=== PATIENT | female | born 1945 | race Caucasian/White ===

== ENCOUNTER 2018-03-27 20:03 | Inpatient (IN) | payer MEDICARE, MEDICAID ==
[~2018-03-27] VITALS: Ht 162.6 cm; Wt 70.0 kg
[~2018-03-27 20:03] MED LIST: ACYC-114 PO; ASPI-515 PO; FLUO20CA19 PO; HYDR2TAB29 PO; LANS30CA60 PO; LEVO50TA5 PO; LIPA1CAP22 PO; METO50TA82 PO; NITR0.3T SL; PROM12.55 PO; RIVA20TA PO; ROSU5TAB PO
[2018-03-27] MEDS ORDERED: SODIUM CHLORIDE 0.9% 1,000 ML IV ONE ×2 (20:33→22:00)
[2018-03-27] MEDS ORDERED: SODIUM CHLORIDE FLUSH 10ML SYR IVF ONE (21:00)
[2018-03-27] MEDS ORDERED: SODIUM CHLORIDE 0.9% 1,000ML IVBOLUS ONE (21:00)
[2018-03-27 21:06] LABS: ACETONE, SERUM Negative (Negative)
[2018-03-27 21:10] LABS: ANION GAP 13 mmol/L (5-15); CALCIUM 8.6 mg/dL (8.5-10.1); CHLORIDE 108 mmol/L (98-107); CREATININE 1.64 mg/dL (0.55-1.02)
[2018-03-27 21:11] LABS: ALBUMIN 3.2 g/dL (3.4-5.0)
[2018-03-27] MEDS ORDERED: FAMOTIDINE 20 MG/2 ML ONE (21:29)
[2018-03-27] MEDS ORDERED: FAMOTIDINE 20 MG/2 ML IVPush ONE (21:30)
[2018-03-27 21:41] LABS: HEMOGLOBIN A1C 11.8 % (4.2-6.3)
[2018-03-27] MEDS ORDERED: SODIUM CHLORIDE FLUSH 10ML SYR IVF PRN (22:00)
[2018-03-27 23:00] VITALS: BP 131/65
[2018-03-27] MEDS ORDERED: ONDANSETRON 2MG/ML, 2ML IVPush PRN (23:00)
[2018-03-27] MEDS ORDERED: POLYETHYLENE GLYCOL 17 GM PACKET PO PRN (23:00)
[2018-03-27] MEDS ORDERED: GLUCAGON 1 MG IM PRN (23:00)
[2018-03-27] MEDS: HEPARIN 5,000 UNITS/ML, 1ML SQ SCH (23:00)
[2018-03-27] MEDS ORDERED: DEXTROSE 50%, 50ML SYRINGE IVPush PRN (23:00)
[2018-03-27] MEDS ORDERED: morphine SULFATE 10 MG/ML, 1ML IVPush PRN (23:00)
[2018-03-27] MEDS ORDERED: BISACODYL 10 MG SUPP PR PRN (23:00)
[2018-03-27] MEDS ORDERED: DEXTROSE 4 GM TAB.CHEW PO PRN (23:00)
[2018-03-27] MEDS: HEPARIN/XARELTO MC SCH (23:30)
[2018-03-27] MEDS: SODIUM CHLORIDE 0.9% 1,000 ML IV SCH (23:51)
[2018-03-27 23:57] LABS: FREE T4 (FREE THYROXINE) 1.43 ng/dL (0.76-1.46); TROPONIN I < 0.015 ng/mL (0.000-0.045)
[2018-03-28] MEDS: HEPARIN/XARELTO MC SCH ×6 (00:30→05:30)
[2018-03-28] MEDS: SODIUM CHLORIDE FLUSH 10ML SYR IVF SCH ×3 (00:31→21:19)
[2018-03-28] MEDS: ATORVASTATIN 10 MG TABLET PO SCH ×2 (00:46→21:20)
[2018-03-28] MEDS: INSULIN LISPRO 100 UNITS/ML, PEN SQ-INSULIN SCH ×5 (01:04→21:23)
[2018-03-28 01:45] VITALS: BP 121/69
[2018-03-28 05:24] LABS: BASOPHILS # (AUTO) 0.02 x10^3/uL (0-0.1); BASOPHILS % (AUTO) 0 % (0-1); EOSINOPHILS # (AUTO) 0.31 x10^3/uL (0-0.4); EOSINOPHILS % (AUTO) 5 % (1-7); LYMPHOCYTES # (AUTO) 2.32 x10^3/uL (1-3.4); LYMPHOCYTES % (AUTO) 38 % (22-44); MD NO; MEAN CORPUSCULAR HEMOGLOBIN 30.9 pg (27.0-34.8); MEAN CORPUSCULAR HGB CONC 34.1 g/dL (32.4-35.8); MEAN CORPUSCULAR VOLUME 90.5 fL (80-100); MEAN PLATELET VOLUME 7.8 fL (7.4-10.4); MONOCYTES # (AUTO) 0.54 x10^3/uL (0.2-0.8); MONOCYTES % (AUTO) 9 % (2-9); NEUTROPHILS # (AUTO) 2.87 x10^3/uL (1.8-6.8); NEUTROPHILS % (AUTO) 47 % (42-75); PLATELET COUNT 229 x10^3/uL (130-400); RED BLOOD COUNT 3.85 x10^6/uL (3.82-5.3); RED CELL DISTRIBUTION WIDTH 12.9 % (9.6-15.2)
[2018-03-28 05:31] LABS: ALBUMIN 2.9 g/dL (3.4-5.0); ANION GAP 9 mmol/L (5-15); CALCIUM 8.2 mg/dL (8.5-10.1); CHLORIDE 113 mmol/L (98-107)
[2018-03-28 05:37] LABS: ALANINE AMINOTRANSFERASE 17 U/L (12-78); ALKALINE PHOSPHATASE 90 U/L (45-117); BILIRUBIN,TOTAL 0.5 mg/dL (0.2-1.0); CREATININE 1.14 mg/dL (0.55-1.02); TOTAL PROTEIN 5.8 g/dL (6.4-8.2); TROPONIN I < 0.015 ng/mL (0.000-0.045)
[2018-03-28] MEDS: SODIUM CHLORIDE 0.9% 1,000 ML IV SCH (06:11)
[2018-03-28] MEDS: PANTOPROZOLE 40MG TABLET PO SCH (08:26)
[2018-03-28] MEDS: HEPARIN 5,000 UNITS/ML, 1ML SQ SCH (08:26)
[2018-03-28] MEDS: LEVOTHYROXINE 75 MCG TABLET PO SCH (08:26)
[2018-03-28] MEDS: PANCRELIPASE 24,000 CAPSULE.DR PO SCH (08:26)
[2018-03-28] MEDS: METOPROLOL TARTRATE 50 MG TABLET PO SCH (08:26)
[2018-03-28] MEDS: SENNA/DOCUSATE TABLET PO SCH (08:27)
[2018-03-28] MEDS ORDERED: RIVAROXABAN 20 MG TABLET PO SCH (09:00)
[2018-03-28] MEDS: NS + 40MEQ KCL 1,000 ML IV SCH ×2 (09:30→21:38)
[2018-03-28] MEDS ORDERED: POTASSIUM CHLORIDE 20 MEQ TAB.ER.PRT PO ONE (10:30)
[2018-03-28 12:14] VITALS: BP 132/79
[2018-03-28 12:15] LABS: CULTURE INDICATED? YES; MICROSCOPIC INDICATED
[2018-03-28 12:31] LABS: CLOSTRIDIUM DIFFICILE ANTIGEN NEGATIVE; CLOSTRIDIUM DIFFICILE TOXIN NEGATIVE (Negative)
[2018-03-28 14:10] VITALS: BP 120/68
[2018-03-28] MEDS: INSULIN GLARGINE 100 UNITS/ML, PEN SQ-INSULIN SCH (14:55)
[2018-03-28] MEDS: RIVAROXABAN 20 MG TABLET PO SCH (17:04)
[2018-03-28 19:32] VITALS: BP 145/74
[2018-03-28] MEDS: ZOLPIDEM 10MG TABLET PO PRN (21:38)
[2018-03-29 01:30] VITALS: BP 126/71
[2018-03-29 07:14] VITALS: BP 134/72
[2018-03-29] MEDS: SENNA/DOCUSATE TABLET PO SCH (09:00)
[2018-03-29] MEDS: NS + 40MEQ KCL 1,000 ML IV SCH ×2 (09:20→21:00)
[2018-03-29] MEDS: INSULIN GLARGINE 100 UNITS/ML, PEN SQ-INSULIN SCH ×2 (09:21→22:01)
[2018-03-29] MEDS: INSULIN LISPRO 100 UNITS/ML, PEN SQ-INSULIN SCH ×4 (09:21→22:00)
[2018-03-29] MEDS: METOPROLOL TARTRATE 50 MG TABLET PO SCH (09:24)
[2018-03-29] MEDS: SODIUM CHLORIDE FLUSH 10ML SYR IVF SCH ×2 (09:24→22:00)
[2018-03-29] MEDS: PANCRELIPASE 24,000 CAPSULE.DR PO SCH (09:24)
[2018-03-29] MEDS: PANTOPROZOLE 40MG TABLET PO SCH (09:24)
[2018-03-29] MEDS: LEVOTHYROXINE 75 MCG TABLET PO SCH (09:25)
[2018-03-29 11:37] LABS: ANION GAP 6 mmol/L (5-15); CALCIUM 7.9 mg/dL (8.5-10.1); CHLORIDE 119 mmol/L (98-107); CREATININE 1.12 mg/dL (0.55-1.02)
[2018-03-29 11:42] LABS: MEAN CORPUSCULAR HEMOGLOBIN 31.5 pg (27.0-34.8); MEAN CORPUSCULAR HGB CONC 34.7 g/dL (32.4-35.8); MEAN CORPUSCULAR VOLUME 90.9 fL (80-100); MEAN PLATELET VOLUME 7.8 fL (7.4-10.4); PLATELET COUNT 180 x10^3/uL (130-400); RED BLOOD COUNT 3.55 x10^6/uL (3.82-5.3); RED CELL DISTRIBUTION WIDTH 13.5 % (9.6-15.2)
[2018-03-29 11:45] LABS: BASOPHILS # (AUTO) 0.01 x10^3/uL (0-0.1); BASOPHILS % (AUTO) 0 % (0-1); EOSINOPHILS # (AUTO) 0.27 x10^3/uL (0-0.4); EOSINOPHILS % (AUTO) 7 % (1-7); LYMPHOCYTES # (AUTO) 0.89 x10^3/uL (1-3.4); LYMPHOCYTES % (AUTO) 24 % (22-44); MD SCAN; MONOCYTES # (AUTO) 0.25 x10^3/uL (0.2-0.8); MONOCYTES % (AUTO) 7 % (2-9); NEUTROPHILS % (AUTO) 62 % (42-75)
[2018-03-29] MEDS: ACETAMINOPHEN 325 MG TABLET PO PRN (12:49)
[2018-03-29 13:33] VITALS: BP 148/75
[2018-03-29] MEDS ORDERED: MAGNESIUM SULFATE PMX 4GM/100M 100 ML IV ONE (14:30)
[2018-03-29] MEDS ORDERED: POTASSIUM PHOSPHATE 44 MEQ in SODIUM CHLORIDE 0.9% 500 ML IV ONE (14:30)
[2018-03-29] MEDS: RIVAROXABAN 20 MG TABLET PO SCH (17:25)
[2018-03-29 18:44] VITALS: BP 133/65
[2018-03-29] MEDS: ATORVASTATIN 10 MG TABLET PO SCH (22:00)
[2018-03-29] MEDS: ZOLPIDEM 10MG TABLET PO PRN (22:01)
[2018-03-30 01:06] VITALS: BP 167/74
[2018-03-30 06:40] VITALS: BP 150/72
[2018-03-30] MEDS: INSULIN LISPRO 100 UNITS/ML, PEN SQ-INSULIN SCH ×4 (07:00→20:44)
[2018-03-30 07:29] LABS: ANION GAP 6 mmol/L (5-15); CALCIUM 8.2 mg/dL (8.5-10.1); CHLORIDE 117 mmol/L (98-107); CREATININE 1.04 mg/dL (0.55-1.02)
[2018-03-30] MEDS: INSULIN GLARGINE 100 UNITS/ML, PEN SQ-INSULIN SCH ×2 (07:30→20:44)
[2018-03-30] MEDS: LEVOTHYROXINE 75 MCG TABLET PO SCH (08:15)
[2018-03-30] MEDS: METOPROLOL TARTRATE 50 MG TABLET PO SCH (08:15)
[2018-03-30] MEDS: PANTOPROZOLE 40MG TABLET PO SCH (08:15)
[2018-03-30] MEDS: SODIUM CHLORIDE FLUSH 10ML SYR IVF SCH ×2 (08:16→20:43)
[2018-03-30] MEDS: SENNA/DOCUSATE TABLET PO SCH (08:16)
[2018-03-30] MEDS: PANCRELIPASE 24,000 CAPSULE.DR PO SCH (09:00)
[2018-03-30] MEDS: ACETAMINOPHEN 325 MG TABLET PO PRN (10:14)
[2018-03-30 12:20] VITALS: BP 128/69
[2018-03-30] MEDS: RIVAROXABAN 20 MG TABLET PO SCH (17:20)
[2018-03-30 19:48] VITALS: BP 149/65
[2018-03-30] MEDS: ATORVASTATIN 10 MG TABLET PO SCH (20:43)
[2018-03-30] MEDS: ZOLPIDEM 10MG TABLET PO PRN (21:59)
[2018-03-31 03:56] VITALS: BP 150/74
[2018-03-31 07:08] VITALS: BP 153/64
[2018-03-31] MEDS: SENNA/DOCUSATE TABLET PO SCH (08:19)
[2018-03-31] MEDS: PANTOPROZOLE 40MG TABLET PO SCH (08:25)
[2018-03-31] MEDS: LEVOTHYROXINE 75 MCG TABLET PO SCH (08:25)
[2018-03-31] MEDS: METOPROLOL TARTRATE 50 MG TABLET PO SCH (08:25)
[2018-03-31] MEDS: PANCRELIPASE 24,000 CAPSULE.DR PO SCH (08:25)
[2018-03-31] MEDS: SODIUM CHLORIDE FLUSH 10ML SYR IVF SCH ×2 (08:26→21:29)
[2018-03-31] MEDS: INSULIN GLARGINE 100 UNITS/ML, PEN SQ-INSULIN SCH ×2 (08:27→21:30)
[2018-03-31] MEDS: INSULIN LISPRO 100 UNITS/ML, PEN SQ-INSULIN SCH ×4 (08:27→21:30)
[2018-03-31 12:48] VITALS: BP 145/76
[2018-03-31] MEDS: RIVAROXABAN 20 MG TABLET PO SCH (17:44)
[2018-03-31 20:00] VITALS: BP 135/69
[2018-03-31] MEDS: ATORVASTATIN 10 MG TABLET PO SCH (21:29)
[2018-03-31] MEDS: ACETAMINOPHEN 325 MG TABLET PO PRN (22:00)
[2018-03-31] MEDS: ZOLPIDEM 10MG TABLET PO PRN (22:00)
[2018-04-01 02:00] VITALS: BP 134/70
[2018-04-01 07:01] VITALS: BP 132/77
[2018-04-01] MEDS ORDERED: INSU100I13 SQ-INSULIN ×2 (07:37)
[2018-04-01] MEDS: PANCRELIPASE 24,000 CAPSULE.DR PO SCH (08:38)
[2018-04-01] MEDS: SENNA/DOCUSATE TABLET PO SCH (08:38)
[2018-04-01] MEDS: METOPROLOL TARTRATE 50 MG TABLET PO SCH (08:38)
[2018-04-01] MEDS: INSULIN LISPRO 100 UNITS/ML, PEN SQ-INSULIN SCH ×2 (08:39→11:49)
[2018-04-01] MEDS: PANTOPROZOLE 40MG TABLET PO SCH (08:39)
[2018-04-01] MEDS: LEVOTHYROXINE 75 MCG TABLET PO SCH (08:39)
[2018-04-01] MEDS: SODIUM CHLORIDE FLUSH 10ML SYR IVF SCH (08:39)
[2018-04-01] MEDS: INSULIN GLARGINE 100 UNITS/ML, PEN SQ-INSULIN SCH (08:40)
== END 2018-04-01 13:34 | disposition home or self-care (01) | DRG 637 ==
LOC: ED 21:38 → EDIP 22:24 → 5SO 22:57 → DCLOUNGE 04-01 13:04
PROVIDERS: ADMIT Internal Medicine; ATTEND Internal Medicine
DX: E11.65 Type 2 diabetes mellitus with hyperglycemia (principal); N17.0 Acute kidney failure with tubular necrosis; D68.69 Other thrombophilia; E44.1 Mild protein-calorie malnutrition; H90.5 Unspecified sensorineural hearing loss; I48.2 Chronic atrial fibrillation; K86.1 Other chronic pancreatitis; E11.21 Type 2 diabetes mellitus with diabetic nephropathy; I20.9 Angina pectoris, unspecified; K58.0 Irritable bowel syndrome with diarrhea; M81.0 Age-related osteoporosis without current pathological fracture; A60.00 Herpesviral infection of urogenital system, unspecified; I10 Essential (primary) hypertension; E04.2 Nontoxic multinodular goiter; E78.5 Hyperlipidemia, unspecified; E89.0 Postprocedural hypothyroidism; J40 Bronchitis, not specified as acute or chronic; N28.9 Disorder of kidney and ureter, unspecified; Z86.73 Personal history of transient ischemic attack (TIA), and cerebral infarction without residual deficits; Z82.49 Family history of ischemic heart disease and other diseases of the circulatory system; Z79.01 Long term (current) use of anticoagulants; Z79.4 Long term (current) use of insulin; Z90.49 Acquired absence of other specified parts of digestive tract; Z90.89 Acquired absence of other organs; Z88.8 Allergy status to other drugs, medicaments and biological substances; Z88.1 Allergy status to other antibiotic agents; E61.1 Iron deficiency; Z60.2 Problems related to living alone; Z68.26 Body mass index [BMI] 26.0-26.9, adult
CPT/HCPCS: 36415; 70450; 71045; 80048; 80053; 81001; 82010; 82040; 82800; 82962; 83036; 83690; 83735; 84100; 84439; 84443; 84484; 85025; 87086; 87324; 93005; 93306; 96374; J1644; J1815; J3475; J3480; J7030; J7040; S0028